=== PATIENT | female | born 1990 | race Two or more races ===

== ENCOUNTER 2018-10-14 21:11 | Emergency (ER) | payer BC ==
[~2018-10-14] VITALS: Ht 162.6 cm; Wt 99.8 kg
== END 2018-10-15 13:54 | disposition home or self-care (01) ==
LOC: ER 21:11 → EDBD 21:34 → ER 21:34
DX: I80.291 Phlebitis and thrombophlebitis of other deep vessels of right lower extremity (principal); M79.604 Pain in right leg